=== PATIENT | male | born 1955 | race Caucasian/White ===

== ENCOUNTER 2019-02-23 19:47 | Inpatient (IN) | payer OTHER ==
[2019-02-23] MEDS ORDERED: IPRATROPIUM/ALBUTEROL 0.5-2.5 MG/3 ML AMPUL NEB ONE (20:18)
[2019-02-23] MEDS ORDERED: METHYLPREDNISOLONE INJ 125 MG/2 ML SDV IV ONE (20:18)
--- NOTE | 2019-02-23 20:26 | ER Document Report ---
ED Respiratory Problem - General Chief Complaint: Shortness Of Breath Stated Complaint: TROUBLE BREATHING Time Seen by Provider: 02/23/19 20:14 Primary Care Provider: JUNG FOX PA [Primary Care Provider] - Follow up as needed Mode of Arrival: Ambulatory Information source: Patient Notes: Chief complaint: Shortness of breath History of complain: 64 years old male with a history of smoking and COPD presents today with 3-day history of persistent cough with on and off exacerbation of breathing. And wheezing diffusely. He has been taking his long-acting bronchodilators, and inhaled steroids. Without help. Denies any fever chills. Productive cough with white sputum. Left chest wall pain on coughing. Denies any left arm numbness tingling sensation nausea she had vomiting palpitation no diaphoresis. He smokes 1 pack of cigarettes a day. Onset: As above Duration: 3 days Severity: Moderate to severe Quality: Wheezing Context: COPD Exacerbating factor and relieving factors: Coughing and minimal exertion REVIEW OF SYSTEMS: CONSTITUTIONAL : Denies fever, chills, or sweats. Denies recent illness. EENT: Denies eye, ear, throat, or mouth pain or symptoms. Denies nasal or sinus congestion or discharge. Denies throat, tongue, or mouth swelling or difficulty swallowing. CARDIOVASCULAR: Denies chest pain. Denies palpitations or racing or irregular heart beat. Denies ankle edema. RESPIRATORY: Denies cough, cold, or chest congestion. Denies shortness of breath, difficulty breathing, or wheezing. GASTROINTESTINAL: Denies abdominal pain or distention. Denies nausea, vomiting, or diarrhea. Denies blood in vomitus, stools, or per rectum. Denies black, tarry stools. Denies constipation. GENITOURINARY: Denies difficulty urinating, painful urination, burning, frequency, blood in urine, or discharge. MUSCULOSKELETAL: Denies back or neck pain or stiffness. Denies joint pain or swelling. SKIN: Denies rash, lesions or sores. HEMATOLOGIC : Denies easy bruising or bleeding. LYMPHATIC: Denies swollen, enlarged glands. NEUROLOGICAL: Denies confusion or altered mental status. Denies passing out or loss of consciousness. Denies dizziness or lightheadedness. Denies headache. Denies weakness or paralysis or loss of use of either side. Denies problems with gait or speech. Denies sensory loss, numbness, or tingling. Denies seizures. PSYCHIATRIC: Denies anxiety or stress. Denies depression, suicidal ideation, o r homicidal ideation. ALL OTHER SYSTEMS REVIEWED AND NEGATIVE. Dictation was performed using [email or web address] voice recognition software PHYSICAL EXAMINATION: GENERAL: Well-appearing, well-nourished and in moderate to severe acute distress. HEAD: Atraumatic, normocephalic. EYES: Pupils equal round and reactive to light, extraocular movements intact, sclera anicteric, conjunctiva are normal. ENT: Nares patent, oropharynx clear without exudates. Moist mucous membranes. NECK: Normal range of motion, supple without lymphadenopathy LUNGS: Bilateral diffuse wheezing expiratory throughout the lung field. HEART: Regular rate and rhythm without murmurs ABDOMEN: Soft, nontender, nondistended abdomen. No guarding, no rebound. No masses appreciated. Musculoskeletal: Normal range of motion, no pitting or edema. No cyanosis. NEUROLOGICAL: Cranial nerves grossly intact. Normal speech, normal gait. Normal sensory, motor exams PSYCH: Normal mood, normal affect. SKIN: Warm, Dry, normal turgor, no rashes or lesions noted. TRAVEL OUTSIDE OF THE [place] IN LAST 30 DAYS: No - HPI Notes: Dictated - Related Data Allergies/Adverse Reactions: No Known Allergies Allergy (Verified 03/21/16 15:00) Past Medical History - Social History Smoking Status: Current Every Day Smoker Cigarette use (# per day): Yes - 20 Chew tobacco use (# tins/day): No Smoking Education Provided: Yes Lives with: Family Family History: Reviewed & Not Pertinent - Past Medical History Cardiac Medical History: Denies: Hx Coronary Artery Disease, Hx Heart Attack, Hx Hypertension Pulmonary Medical History: Reports: Hx Asthma, Hx Bronchitis, Hx COPD Denies: Hx Pneumonia, Hx Tuberculosis Neurological Medical History: Denies: Hx Cerebrovascular Accident, Hx Seizures GI Medical History: Reports: Hx Gastroesophageal Reflux Disease Musculoskeletal Medical History: Denies Hx Arthritis Past Surgical History: Reports: Hx Herniorrhaphy, Hx Orthopedic Surgery - left elbow. Denies: Hx Pacemaker - Immunizations Hx Diphtheria, Pertussis, Tetanus Vaccination: Yes Hx Pneumococcal Vaccination: 06/12/10 Review of Systems - Review of Systems Notes: Dictated Physical Exam - Vital signs Vitals: Temp Pulse Resp BP Pulse Ox 98.9 F 116 H 19 129/85 H 89 L 02/23/19 19:51 02/23/19 19:51 02/23/19 19:51 02/23/19 19:51 02/23/19 19:51 - Notes Notes: Dictated Course - Re-evaluation Re-evalutation: 02/23/19 23:13 Case was discussed with the hospital service and currently being admitted - Vital Signs Vital signs: Temp Pulse Resp BP Pulse Ox 98.9 F 116 H 18 129/85 H 100 02/23/19 19:51 02/23/19 19:51 02/23/19 21:00 02/23/19 19:51 02/23/19 22:18 - Laboratory Result Diagrams: 02/23/19 20:50 02/23/19 20:50 Laboratory results interpreted by me: 02/23/19 02/23/19 02/23/19 20:44 20:50 20:50 WBC 15.7 H RDW 15.6 H Lymph % (Auto) 9.2 L Absolute Neuts (auto) 12.5 H Seg Neutrophils % 79.7 H D-Dimer 0.61 H Carbonic Acid ABG pH ABG pCO2 ABG pO2 ABG Total CO2 ABG O2 Saturation Creatinine Est GFR ( Amer) Est GFR (MDRD) Non-Af Calcium Creatine Kinase CK-MB (CK-2) Urine Blood SMALL H 02/23/19 02/23/19 02/23/19 20:50 20:50 20:53 WBC RDW Lymph % (Auto) Absolute Neuts (auto) Seg Neutrophils % D-Dimer Carbonic Acid 0.92 L ABG pH 7.46 H ABG pCO2 30.6 L ABG pO2 54.0 L ABG Total CO2 22.3 L ABG O2 Saturation 90.2 L Creatinine 1.67 H Est GFR ( Amer) 51 L Est GFR (MDRD) Non-Af 42 L Calcium 10.3 H Creatine Kinase 338 H CK-MB (CK-2) 4.78 H Urine Blood - Diagnostic Test Radiology reviewed: Reports reviewed - Chest x-ray reported by radiologist as u nremarkable/EQ vocal Discharge - Discharge Clinical Impression: COPD with exacerbation, Chest wall pain Condition: Fair Disposition: HOME, SELF-CARE Admitting Provider: Jagjit (Hospitalist) Unit Admitted: Telemetry Referrals: JUNG FOX PA [Primary Care Provider] - Follow up as needed
--- NOTE | 2019-02-23 20:59 | RADIOLOGY REPORT (SQ) ---
EXAM DESCRIPTION: XR CHEST 2 VIEWS COMPLETED DATE/TME: 02/23/2019 20:19 CLINICAL HISTORY: 64 years, Male, Cough and shortness of breath COMPARISON: 03/20/2014 chest NUMBER OF VIEWS: 2 TECHNIQUE: Frontal and lateral views of the chest LIMITATIONS: None. FINDINGS: Heart size is normal. Underlying hyperinflation/COPD. Equivocal retrocardiac infiltrate suggested on the lateral view. No pneumothorax. Osteopenia.. IMPRESSION: COPD. Equivocal retrocardiac infiltrate. copyright 2010 [employer]- All Rights Reserved
[2019-02-23 21:04] LABS: ABSOLUTE BASOPHILS # (AUTO) 0.1 10^3/uL (0.0-0.2); ABSOLUTE EOSINOPHILS # (AUTO) 0.4 10^3/uL (0.0-0.6); ABSOLUTE LYMPHOCYTES (AUTO) 1.4 10^3/uL (0.5-4.7); ABSOLUTE MONOCYTES (AUTO) 1.3 10^3/uL (0.1-1.4); ABSOLUTE NEUT (AUTO) 12.5 10^3/uL (1.7-8.2); BASOPHILS % (AUTO) 0.4 % (0-2); EOSINOPHILS % (AUTO) 2.5 % (0-6); HEMATOCRIT 43.6 % (37.9-51.0); HEMOGLOBIN 14.6 g/dL (13.5-17.0); LYMPHOCYTES % (AUTO) 9.2 % (13-45); MEAN CORPUSCULAR HEMOGLOBIN 27.8 pg (27.0-33.4); MEAN CORPUSCULAR HGB CONC 33.4 g/dL (32.0-36.0); MEAN CORPUSCULAR VOLUME 83 fl (80-97); MONOCYTES % (AUTO) 8.2 % (3-13); PLATELET COUNT 267 10^3/uL (150-450); RED BLOOD COUNT 5.23 10^6/uL (4.35-5.55); RED CELL DISTRIBUTION WIDTH 15.6 % (11.5-14.0); SEGMENTED NEUTROPHILS % (AUTO) 79.7 % (42-78); TOTAL CELLS COUNTED % (AUTO) 100 %; WHITE BLOOD COUNT 15.7 10^3/uL (4.0-10.5)
[2019-02-23] MEDS: MAGNESIUM SULFATE/D5W 1 GM/100 ML RTUPB IV SCH ×2 (21:06→22:04)
[2019-02-23 21:20] LABS: ARTERIAL BLOOD BASE EXCESS -1.3 mmol/L; ARTERIAL BLOOD FIO2 ROOM AIR; ARTERIAL BLOOD H2CO3 0.92 mmol/L (1.05-1.35); ARTERIAL BLOOD HCO3 21.4 mmol/L (20-24); ARTERIAL BLOOD O2 SATURATION 90.2 % (94-98); ARTERIAL BLOOD PCO2 30.6 mmHg (35-45); ARTERIAL BLOOD PH 7.46 (7.35-7.45); ARTERIAL BLOOD TOTAL CO2 22.3 mmol/L (23-27)
[2019-02-23 21:27] LABS: APPEARANCE,URINE CLEAR; BILIRUBIN,URINE NEGATIVE (NEGATIVE); GLUCOSE, URINE NEGATIVE (NEGATIVE); KETONES,URINE NEGATIVE (NEGATIVE); LEUKOCYTE ESTERASE,URINE NEGATIVE (NEGATIVE); NITRITE,URINE NEGATIVE (NEGATIVE); PROTEIN,URINE NEGATIVE (NEGATIVE); URINE SPECIFIC GRAVITY 1.015; UROBILINOGEN,URINE NEGATIVE mg/dL (<2.0)
[2019-02-23 21:28] LABS: COLOR,URINE DARK YELLOW
[2019-02-23 21:29] LABS: ALBUMIN 4.4 g/dL (3.5-5.0); ALKALINE PHOSPHATASE 86 U/L (38-126); ANION GAP 12 (5-19); ASPARTATE AMINO TRANSFERASE 28 U/L (17-59); BILIRUBIN,DIRECT 0.2 mg/dL (0.0-0.4); BILIRUBIN,TOTAL 0.8 mg/dL (0.2-1.3); BLOOD UREA NITROGEN 16 mg/dL (7-20); CALCIUM 10.3 mg/dL (8.4-10.2); CARBON DIOXIDE 25 mmol/L (22-30); CHLORIDE 103 mmol/L (98-107); CREATINE KINASE 338 U/L (55-170); GLUCOSE 98 mg/dL (75-110); POTASSIUM 4.2 mmol/L (3.6-5.0)
[2019-02-23 21:39] LABS: CREATINE KINASE MB 4.78 ng/mL (<4.55); NT PRO BNP 178 pg/mL (5-900)
[2019-02-23 21:46] LABS: TROPONIN I < 0.012 ng/mL
[2019-02-23] MEDS ORDERED: AZITHROMYCIN 500 MG in DEXTROSE 5%-WATER 250 ML IV ONE (23:00)
[2019-02-23] MEDS ORDERED: CEFTRIAXONE 1 GM/D5W RTU 1 GM/50 ML RTUPB IV ONE (23:00)
[2019-02-23] MEDS ORDERED: ACETAMINOPHEN 325 MG TABLET PO PRN (23:19)
[2019-02-23] MEDS ORDERED: IPRATROPIUM/ALBUTEROL 0.5-2.5 MG/3 ML AMPUL NEB PRN (23:19)
[2019-02-23] MEDS ORDERED: GUAIFENESIN SYRP 200 MG/10 ML UDC PO PRN (23:19)
[2019-02-23] MEDS ORDERED: HYDRALAZINE HCL INJ/PF 20 MG/1 ML SDV IV PRN (23:19)
[2019-02-23] MEDS ORDERED: FLUTICASONE NASAL SPRAY 50 MCG/SPRY 120 SPRAY/16 GM NASL ONE (23:45)
[2019-02-23] MEDS ORDERED: AZITHROMYCIN INJ 500 MG VIAL IV PRN (23:58)
[2019-02-24] MEDS ORDERED: CHLORPHENIRAMINE MALEATE 4 MG TABLET ONE (02:14)
[2019-02-24] MEDS ORDERED: FLUTICASONE NASAL SPRAY 50 MCG/SPRY 120 SPRAY/16 GM ONE (02:15)
[2019-02-24] MEDS: CHLORPHENIRAMINE MALEATE 4 MG TABLET PO SCH ×4 (03:20→18:39)
[2019-02-24] MEDS: IPRATROPIUM/ALBUTEROL 0.5-2.5 MG/3 ML AMPUL NEB SCH ×4 (03:30→19:58)
--- NOTE | 2019-02-24 06:05 | PDOC H&P ---
History of Present Illness Admission Date/PCP: 02/24/19 00:28 ALEXANDER VARGAS Patient complains of: Shortness of breath History of Present Illness: KAILYN PENA JR is a 64 year old male with a past medical history of COPD and tobacco dependence presents with 7 days of fever chills productive cough with green sputum. In the emergency room he is found to pneumonia, bilateral rhonchi, hypoxia by ABG and leukocytosis. He receives empiric antibiotics and referred to the hospitalist for admission. Patient denies recent antibiotic use or known infectious contacts. He otherwise admits to sinus congestion with nasal drip without sore throat or uncontrolled GERD. Past Medical History Cardiac Medical History: Denies: Coronary Artery Disease, Myocardial Infarction, Hypertension Pulmonary Medical History: Reports: Asthma, Bronchitis, Chronic Obstructive Pulmonary Disease (COPD) Denies: Pneumonia, Tuberculosis Neurological Medical History: Denies: Seizures GI Medical History: Reports: Gastroesophageal Reflux Disease Musculoskeltal Medical History: Denies: Arthritis Psychiatric Medical History: Denies: Depression Hematology: Denies: Anemia Past Surgical History Past Surgical History: Reports: Herniorrhaphy, Orthopedic Surgery - left elbow Denies: Pacemaker Social History Information Source: Patient Lives with: Family Smoking Status: Current Every Day Smoker Cigarettes Packs Per Day: 1 Number of Years Smokin Frequency of Alcohol Use: None Hx Recreational Drug Use: No Drugs: None Hx Prescription Drug Abuse: No - Advance Directive Resuscitation Status: Full Code Family History Family History: Reviewed & Not Pertinent Parental Family History Reviewed: Yes Children Family History Reviewed: Yes Sibling(s) Family History Reviewed.: Yes Medication/Allergy Home Medications: Sertraline HCl [Zoloft 50 mg Tablet] 50 mg PO DAILY 08/04/15 Budesonide/Formoterol Fumarate [Symbicort Hfa 160-4.5 Mcg Inhaler 6 gm] 2 puff IH Q12 08/05/15 Allergies/Adverse Reactions: No Known Allergies Allergy (Verified 03/21/16 15:00) Review of Systems Constitutional: ABSENT: chills, fever(s), headache(s), weight gain, weight loss Eyes: ABSENT: visual disturbances Ears: ABSENT: hearing changes Cardiovascular: ABSENT: chest pain, dyspnea on exertion, edema, orthropnea, palpitations Respiratory: ABSENT: cough, hemoptysis Gastrointestinal: ABSENT: abdominal pain, constipation, diarrhea, hematemesis, hematochezia, nausea, vomiting Genitourinary: ABSENT: dysuria, hematuria Musculoskeletal: ABSENT: joint swelling Integumentary: ABSENT: rash, wounds Neurological: ABSENT: abnormal gait, abnormal speech, confusion, dizziness, focal weakness, syncope Psychiatric: ABSENT: anxiety, depression, homidical ideation, suicidal ideation Endocrine: ABSENT: cold intolerance, heat intolerance, polydipsia, polyuria Hematologic/Lymphatic: ABSENT: easy bleeding, easy bruising Physical Exam Vital Signs: Temp Pulse Resp BP Pulse Ox 98.5 F 78 16 128/71 H 98 02/24/19 02:00 02/24/19 03:30 02/24/19 03:30 02/24/19 02:00 02/24/19 03:30 Intake & Output 02/22/19 02/23/19 02/24/19 11:59 11:59 11:59 Intake Total 250 Balance 250 Weight 84 kg General appearance: PRESENT: cooperative, severe distress, thin, well-developed, well-nourished Head exam: PRESENT: atraumatic, normocephalic Eye exam: PRESENT: conjunctiva pink, EOMI, PERRLA. ABSENT: scleral icterus Ear exam: PRESENT: normal external ear exam Mouth exam: PRESENT: moist, tongue midline Neck exam: ABSENT: carotid bruit, JVD, lymphadenopathy, thyromegaly Respiratory exam: PRESENT: accessory muscle use, prolonged expiratory phas, retraction, rhonchi, symmetrical, tachypnea, wheezes Cardiovascular exam: PRESENT: +S1, +S2, tachycardia. ABSENT: diastolic murmur, rubs, systolic murmur Pulses: PRESENT: normal dorsalis pedis pul Vascular exam: PRESENT: normal capillary refill GI/Abdominal exam: PRESENT: normal bowel sounds, soft. ABSENT: distended, guarding, mass, organolmegaly, rebound, tenderness Rectal exam: PRESENT: deferred Extremities exam: PRESENT: full ROM. ABSENT: calf tenderness, clubbing, pedal edema Neurological exam: PRESENT: alert, awake, oriented to person, oriented to place, oriented to time, oriented to situation, CN II-XII grossly intact. ABSENT: motor sensory deficit Psychiatric exam: PRESENT: appropriate affect, normal mood. ABSENT: homicidal ideation, suicidal ideation Skin exam: PRESENT: dry, intact, warm. ABSENT: cyanosis, rash Results Laboratory Results: 02/23/19 20:50 02/23/19 20:50 02/23/19 02/23/19 02/23/19 20:44 20:50 20:50 WBC 15.7 H RBC 5.23 Hgb 14.6 Hct 43.6 MCV 83 MCH 27.8 MCHC 33.4 RDW 15.6 H Plt Count 267 Seg Neutrophils % 79.7 H Carbonic Acid HCO3/H2CO3 Ratio ABG pH ABG pCO2 ABG pO2 ABG HCO3 ABG O2 Saturation ABG Base Excess FiO2 Sodium 139.9 Potassium 4.2 Chloride 103 Carbon Dioxide 25 Anion Gap 12 BUN 16 Creatinine 1.67 H Est GFR ( Amer) 51 L Glucose 98 Calcium 10.3 H Total Bilirubin 0.8 AST 28 Alkaline Phosphatase 86 Total Protein 7.0 Albumin 4.4 Urine Color DARK YELLOW Urine Appearance CLEAR Urine pH 5.0 Ur Specific [place] 1.015 Urine Protein NEGATIVE Urine Glucose (UA) NEGATIVE Urine Ketones NEGATIVE Urine Blood SMALL H Urine Nitrite NEGATIVE Ur Leukocyte Esterase NEGATIVE Urine WBC (Auto) 1 Urine RBC (Auto) 2 02/23/19 20:53 WBC RBC Hgb Hct MCV MCH MCHC RDW Plt Count Seg Neutrophils % Carbonic Acid 0.92 L HCO3/H2CO3 Ratio 23:1 ABG pH 7.46 H ABG pCO2 30.6 L ABG pO2 54.0 L ABG HCO3 21.4 ABG O2 Saturation 90.2 L ABG Base Excess -1.3 FiO2 ROOM AIR Sodium Potassium Chloride Carbon Dioxide Anion Gap BUN Creatinine Est GFR ( Amer) Glucose Calcium Total Bilirubin AST Alkaline Phosphatase Total Protein Albumin Urine Color Urine Appearance Urine pH Ur Specific [place] Urine Protein Urine Glucose (UA) Urine Ketones Urine Blood Urine Nitrite Ur Leukocyte Esterase Urine WBC (Auto) Urine RBC (Auto) 02/23/19 02/23/19 20:50 20:50 Creatine Kinase 338 H CK-MB (CK-2) 4.78 H Troponin I < 0.012 NT-Pro-B Natriuret Pep 178 Impressions: Chest X-Ray 02/23/19 20:19 IMPRESSION: COPD. Equivocal retrocardiac infiltrate. copyright 2010 [employer]- All Rights Reserved Assessment and Plan - Diagnosis (1) Pneumonia Is this a current diagnosis for this admission?: Yes Plan: Pneumonia care set, follow-up blood culture and CBC (2) COPD with exacerbation Is this a current diagnosis for this admission?: Yes Plan: Steroids, supplemental oxygen, flutter valve, incentive spirometry albuterol and Atrovent (3) Chest wall pain Is this a current diagnosis for this admission?: Yes Plan: Secondary to #1 and cough. NSAIDs as needed - Time Time Spent with patient: 25-34 minutes - Inpatient Certification Medical Necessity: Need Close Monitoring Due to Risk of Patient Decompensation
[2019-02-24] MEDS: METHYLPREDNISOLONE INJ 125 MG/2 ML SDV IV SCH ×3 (06:09→23:45)
[2019-02-24] MEDS: HEPARIN SOD (PORCINE) 5,000 UNIT/ML 1 ML VIAL SUBCUT SCH ×3 (06:09→23:45)
[2019-02-24 06:38] LABS: ANION GAP 9 (5-19); BLOOD UREA NITROGEN 16 mg/dL (7-20); CALCIUM 9.6 mg/dL (8.4-10.2); CARBON DIOXIDE 22 mmol/L (22-30); CHLORIDE 108 mmol/L (98-107); GLUCOSE 191 mg/dL (75-110); POTASSIUM 4.2 mmol/L (3.6-5.0)
[2019-02-24 06:39] LABS: HEMATOCRIT 50.7 % (37.9-51.0); HEMOGLOBIN 16.6 g/dL (13.5-17.0); MEAN CORPUSCULAR HEMOGLOBIN 27.3 pg (27.0-33.4); MEAN CORPUSCULAR HGB CONC 32.7 g/dL (32.0-36.0); MEAN CORPUSCULAR VOLUME 83 fl (80-97); PLATELET COUNT 197 10^3/uL (150-450); RED BLOOD COUNT 6.08 10^6/uL (4.35-5.55); RED CELL DISTRIBUTION WIDTH 15.2 % (11.5-14.0)
[2019-02-24 07:19] LABS: ABSOLUTE MONOCYTES # (MANUAL) 0.1 10^3/uL (0.1-1.4); ANISOCYTOSIS SLIGHT; BAND NEUTROPHILS % (MANUAL) 6 % (3-5); BASOPHILS % (MANUAL) 0 % (0-2); EOSINOPHILS % (MANUAL) 0 % (0-6); LYMPHOCYTES % (MANUAL) 7 % (13-45); MONOCYTES % (MANUAL) 1 % (3-13); SEGMENTED NEUTROPHILS % (MAN) 86 % (42-78); TOTAL CELLS COUNTED 100
[2019-02-24 07:20] LABS: PLATELET COMMENT ADEQUATE
[2019-02-24] MEDS: NICOTINE 14 MG/24 HR PATCH.TD24 TD SCH (10:13)
[2019-02-24] MEDS: FLUTICASONE NASAL SPRAY 50 MCG/SPRY 120 SPRAY/16 GM NASL SCH ×2 (10:19→23:47)
--- NOTE | 2019-02-24 16:29 | PDOC PROGRESS REPORT ---
Subjective Progress Note for:: 02/24/19 Subjective:: KAILYN PENA JR is a 64 year old male with a past medical history of COPD and tobacco dependence presents with 7 days of fever chills productive cough with green sputum. In the emergency room he is found to pneumonia, bilateral rhonchi, hypoxia by ABG and leukocytosis. He receives empiric antibiotics and referred to the hospitalist for admission. Patient denies recent antibiotic use or known infectious contacts. He otherwise admits to sinus congestion with n reddy drip without sore throat or uncontrolled GERD. 02/24/2019. Patient comfortably sitting in bed, enjoying his lunch, stating he is feeling much better, accompanied by his , denies any fever, chills, nausea, vomiting, diarrhea, constipation or any urinary symptoms. Still complaining of productive cough. Reason For Visit: COPD WITH EXACERBATION,CHEST WALL PAIN Physical Exam Vital Signs: Temp Pulse Resp BP Pulse Ox 98.3 F 92 18 118/75 94 02/24/19 10:54 02/24/19 14:04 02/24/19 14:04 02/24/19 10:54 02/24/19 14:04 Intake & Output 02/23/19 02/24/19 02/25/19 06:59 06:59 06:59 Intake Total 400 621 Balance 400 621 Weight 84 kg General appearance: PRESENT: no acute distress, obese Respiratory exam: PRESENT: crackles, prolonged expiratory phas, symmetrical, wheezes. ABSENT: rales, rhonchi Cardiovascular exam: PRESENT: RRR. ABSENT: diastolic murmur, rubs, systolic murmur GI/Abdominal exam: PRESENT: normal bowel sounds, soft. ABSENT: distended, gua rding, mass, organolmegaly, rebound, tenderness Neurological exam: PRESENT: alert, awake, oriented to person, oriented to place, oriented to time, oriented to situation, CN II-XII grossly intact. ABSENT: motor sensory deficit Results Laboratory Results: 02/24/19 05:35 02/24/19 05:35 02/23/19 02/23/19 02/23/19 20:44 20:50 20:50 WBC 15.7 H RBC 5.23 Hgb 14.6 Hct 43.6 MCV 83 MCH 27.8 MCHC 33.4 RDW 15.6 H Plt Count 267 Seg Neutrophils % 79.7 H Carbonic Acid HCO3/H2CO3 Ratio ABG pH ABG pCO2 ABG pO2 ABG HCO3 ABG O2 Saturation ABG Base Excess FiO2 Sodium 139.9 Potassium 4.2 Chloride 103 Carbon Dioxide 25 Anion Gap 12 BUN 16 Creatinine 1.67 H Est GFR ( Amer) 51 L Glucose 98 Calcium 10.3 H Total Bilirubin 0.8 AST 28 Alkaline Phosphatase 86 Total Protein 7.0 Albumin 4.4 Urine Color DARK YELLOW Urine Appearance CLEAR Urine pH 5.0 Ur Specific [place] 1.015 Urine Protein NEGATIVE Urine Glucose (UA) NEGATIVE Urine Ketones NEGATIVE Urine Blood SMALL H Urine Nitrite NEGATIVE Ur Leukocyte Esterase NEGATIVE Urine WBC (Auto) 1 Urine RBC (Auto) 2 02/23/19 02/24/19 02/24/19 20:53 05:35 05:35 WBC 14.0 H RBC 6.08 H Hgb 16.6 Hct 50.7 MCV 83 MCH 27.3 MCHC 32.7 RDW 15.2 H Plt Count 197 Seg Neutrophils % Not Reportable Carbonic Acid 0.92 L HCO3/H2CO3 Ratio 23:1 ABG pH 7.46 H ABG pCO2 30.6 L ABG pO2 54.0 L ABG HCO3 21.4 ABG O2 Saturation 90.2 L ABG Base Excess -1.3 FiO2 ROOM AIR Sodium 139.2 Potassium 4.2 Chloride 108 H Carbon Dioxide 22 Anion Gap 9 BUN 16 Creatinine 1.30 H Est GFR ( Amer) > 60 Glucose 191 H Calcium 9.6 Total Bilirubin AST Alkaline Phosphatase Total Protein Albumin Urine Color Urine Appearance Urine pH Ur Specific [place] Urine Protein Urine Glucose (UA) Urine Ketones Urine Blood Urine Nitrite Ur Leukocyte Esterase Urine WBC (Auto) Urine RBC (Auto) 02/23/19 02/23/19 20:50 20:50 Creatine Kinase 338 H CK-MB (CK-2) 4.78 H Troponin I < 0.012 NT-Pro-B Natriuret Pep 178 Impressions: Chest X-Ray 02/23/19 20:19 IMPRESSION: COPD. Equivocal retrocardiac infiltrate. copyright 2011 [employer]- All Rights Reserved Assessment and Plan - Diagnosis (1) Acute and chronic respiratory failure with hypoxia Is this a current diagnosis for this admission?: Yes Plan: Complicated by underlying COPD/asthma and continued tobacco abuse. SPO2 WNL on 3 L nasal cannula. Day 2 IV antibiotics. Day 2 IV ceftriaxone. Day 2 IV and azithromycin. Day 2 IV steroids. Continue IV steroids, duo nebs, flutter valve, incentive spirometry, IV empiric antibiotics, long-acting beta agonist, long-acting muscarinic antagonist, inhaled corticosteroids. Follow-up sputum and blood culture. (2) COPD with exacerbation Is this a current diagnosis for this admission?: Yes Plan: Plan per #1. Advised on tobacco cessation. Not on home O2. (3) Pneumonia Qualifiers: Aspiration pneumonia type: unspecified Is this a current diagnosis for this admission?: Yes Plan: Community-acquired. Likely due to gram-positive. Plan as per #1. (4) Tobacco abuse Is this a current diagnosis for this admission?: Yes Plan: Counseled on quitting. NicoDerm patch provided. (5) Obesity (BMI 30-39.9) Is this a current diagnosis for this admission?: Yes Plan: Diet and lifestyle modification advised.
[2019-02-24] MEDS: CEFTRIAXONE 1 GM/D5W RTU 1 GM/50 ML RTUPB IV SCH (23:45)
[2019-02-24] MEDS: AZITHROMYCIN 500 MG in DEXTROSE 5%-WATER 250 ML IV SCH (23:46)
[2019-02-25] MEDS: IPRATROPIUM/ALBUTEROL 0.5-2.5 MG/3 ML AMPUL NEB SCH ×4 (02:13→20:48)
[2019-02-25 06:16] LABS: HEMATOCRIT 39.5 % (37.9-51.0); MEAN CORPUSCULAR HGB CONC 33.3 g/dL (32.0-36.0); MEAN CORPUSCULAR VOLUME 84 fl (80-97); PLATELET COUNT 300 10^3/uL (150-450); RED CELL DISTRIBUTION WIDTH 14.8 % (11.5-14.0); WHITE BLOOD COUNT 19.2 10^3/uL (4.0-10.5)
[2019-02-25 06:32] LABS: ALBUMIN 3.5 g/dL (3.5-5.0); ALKALINE PHOSPHATASE 91 U/L (38-126); ANION GAP 8 (5-19); ASPARTATE AMINO TRANSFERASE 22 U/L (17-59); BILIRUBIN,DIRECT 0.2 mg/dL (0.0-0.4); BILIRUBIN,TOTAL 0.3 mg/dL (0.2-1.3); BLOOD UREA NITROGEN 29 mg/dL (7-20); CALCIUM 9.8 mg/dL (8.4-10.2); CARBON DIOXIDE 21 mmol/L (22-30); CHLORIDE 110 mmol/L (98-107); GLUCOSE 170 mg/dL (75-110); POTASSIUM 4.1 mmol/L (3.6-5.0)
[2019-02-25 06:34] LABS: HEMOGLOBIN 13.2 g/dL (13.5-17.0)
[2019-02-25] MEDS: METHYLPREDNISOLONE INJ 125 MG/2 ML SDV IV SCH ×3 (06:39→22:31)
[2019-02-25] MEDS: HEPARIN SOD (PORCINE) 5,000 UNIT/ML 1 ML VIAL SUBCUT SCH ×3 (06:39→22:31)
[2019-02-25 06:47] LABS: ABSOLUTE LYMPHOCYTES# (MANUAL) 0.8 10^3/uL (0.5-4.7); ANISOCYTOSIS SLIGHT; BAND NEUTROPHILS % (MANUAL) 1 % (3-5); BASOPHILS % (MANUAL) 0 % (0-2); EOSINOPHILS % (MANUAL) 0 % (0-6); LYMPHOCYTES % (MANUAL) 4 % (13-45); MONOCYTES % (MANUAL) 0 % (3-13); SEGMENTED NEUTROPHILS % (MAN) 95 % (42-78); TOTAL CELLS COUNTED 100
[2019-02-25 06:48] LABS: PLATELET COMMENT ADEQUATE
[2019-02-25 07:36] LABS: ARTERIAL BLOOD BASE EXCESS -3.9 mmol/L; ARTERIAL BLOOD FIO2 28%; ARTERIAL BLOOD H2CO3 1.02 mmol/L (1.05-1.35); ARTERIAL BLOOD HCO3 20.2 mmol/L (20-24); ARTERIAL BLOOD O2 SATURATION 94.6 % (94-98); ARTERIAL BLOOD PCO2 33.9 mmHg (35-45); ARTERIAL BLOOD PH 7.39 (7.35-7.45); ARTERIAL BLOOD PO2 72.2 mmHg (80-100); ARTERIAL BLOOD TOTAL CO2 21.2 mmol/L (23-27)
[2019-02-25 07:37] LABS: HEMATOCRIT 39.6 % (37.9-51.0); HEMOGLOBIN 13.2 g/dL (13.5-17.0); MEAN CORPUSCULAR HEMOGLOBIN 27.9 pg (27.0-33.4); MEAN CORPUSCULAR HGB CONC 33.2 g/dL (32.0-36.0); MEAN CORPUSCULAR VOLUME 84 fl (80-97); PLATELET COUNT 317 10^3/uL (150-450); RED BLOOD COUNT 4.72 10^6/uL (4.35-5.55); RED CELL DISTRIBUTION WIDTH 15.3 % (11.5-14.0); WHITE BLOOD COUNT 20.1 10^3/uL (4.0-10.5)
[2019-02-25 08:12] LABS: ABSOLUTE LYMPHOCYTES# (MANUAL) 1.2 10^3/uL (0.5-4.7); ANISOCYTOSIS SLIGHT; BAND NEUTROPHILS % (MANUAL) 1 % (3-5); BASOPHILS % (MANUAL) 0 % (0-2); EOSINOPHILS % (MANUAL) 0 % (0-6); LYMPHOCYTES % (MANUAL) 6 % (13-45); MONOCYTES % (MANUAL) 5 % (3-13); PLATELET COMMENT ADEQUATE; SEGMENTED NEUTROPHILS % (MAN) 88 % (42-78); TOTAL CELLS COUNTED 100
[2019-02-25] MEDS ORDERED: FLUTICASONE/VILANTEROL 200-25 MCG/DOSE IH SCH (10:00)
[2019-02-25] MEDS: FLUTICASONE/VILANTEROL 200-25 MCG/DOSE IH SCH (11:33)
[2019-02-25] MEDS: TIOTROPIUM BROMIDE DPI 5 CAP/KIT (18 MCG/CAP) IH SCH (11:35)
[2019-02-25] MEDS: NICOTINE 14 MG/24 HR PATCH.TD24 TD SCH (11:37)
[2019-02-25] MEDS: FLUTICASONE NASAL SPRAY 50 MCG/SPRY 120 SPRAY/16 GM NASL SCH ×2 (14:01→22:44)
--- NOTE | 2019-02-25 15:46 | PDOC PROGRESS REPORT ---
Subjective Progress Note for:: 02/25/19 Subjective:: KAILYN PENA JR is a 64 year old male with a past medical history of COPD and tobacco dependence presents with 7 days of fever chills productive cough with green sputum. In the emergency room he is found to pneumonia, bilateral rhonchi, hypoxia by ABG and leukocytosis. He receives empiric antibiotics and referred to the hospitalist for admission. Patient denies recent antibiotic use or known infectious contacts. He otherwise admits to sinus congestion with n reddy drip without sore throat or uncontrolled GERD. 02/24/2019. Patient comfortably sitting in bed, enjoying his lunch, stating he is feeling much better, accompanied by his , denies any fever, chills, nausea, vomiting, diarrhea, constipation or any urinary symptoms. Still complaining of productive cough. 02/25/2019. No acute events overnight. Patient comfortably sitting in bed, enjoying his breakfast, planing of nonproductive nonbloody cough, wheezing, denies any fever, chills, nausea, vomiting, diarrhea, constipation or any urinary symptoms. Patient still has mild hypoxia with elevated WBC and mild bandemia. Continue antibiotics, evaluate for need for outpatient oxygen and possible DC home tomorrow. Reason For Visit: COPD WITH EXACERBATION,CHEST WALL PAIN Physical Exam Vital Signs: Temp Pulse Resp BP Pulse Ox 97.3 F 92 16 121/69 95 02/25/19 08:29 02/25/19 13:50 02/25/19 13:50 02/25/19 08:29 02/25/19 13:50 Intake & Output 02/24/19 02/25/19 02/26/19 06:59 06:59 06:59 Intake Total 400 1687 Balance 400 1687 Weight 84 kg 83.1 kg General appearance: PRESENT: no acute distress, well-developed, well-nourished Head exam: PRESENT: atraumatic, normocephalic Eye exam: PRESENT: conjunctiva pink, EOMI, PERRLA. ABSENT: scleral icterus Ear exam: PRESENT: normal external ear exam Mouth exam: PRESENT: moist, tongue midline Neck exam: ABSENT: carotid bruit, JVD, lymphadenopathy, thyromegaly Respiratory exam: PRESENT: decreased breath sounds, prolonged expiratory phas, wheezes. ABSENT: rales, rhonchi Cardiovascular exam: PRESENT: RRR. ABSENT: diastolic murmur, rubs, systolic murmur Pulses: PRESENT: normal dorsalis pedis pul Vascular exam: PRESENT: normal capillary refill GI/Abdominal exam: PRESENT: normal bowel sounds, soft. ABSENT: distended, guarding, mass, organolmegaly, rebound, tenderness Rectal exam: PRESENT: deferred Extremities exam: PRESENT: full ROM. ABSENT: calf tenderness, clubbing, pedal edema Neurological exam: PRESENT: alert, awake, oriented to person, oriented to place, oriented to time, oriented to situation, CN II-XII grossly intact. ABSENT: motor sensory deficit Psychiatric exam: PRESENT: appropriate affect, normal mood. ABSENT: homicidal ideation, suicidal ideation Skin exam: PRESENT: dry, intact, warm. ABSENT: cyanosis, rash Results Laboratory Results: 02/25/19 07:24 02/25/19 05:38 02/25/19 02/25/19 02/25/19 05:38 05:38 06:17 WBC 19.2 H RBC 4.70 Hgb 13.2 L D Hct 39.5 MCV 84 MCH 28.0 MCHC 33.3 RDW 14.8 H Plt Count 300 Seg Neutrophils % Not Reportable Carbonic Acid 1.02 L HCO3/H2CO3 Ratio 19:1 ABG pH 7.39 ABG pCO2 33.9 L ABG pO2 72.2 L ABG HCO3 20.2 ABG O2 Saturation 94.6 ABG Base Excess -3.9 FiO2 28% Sodium 138.8 Potassium 4.1 Chloride 110 H Carbon Dioxide 21 L Anion Gap 8 BUN 29 H Creatinine 1.18 Est GFR ( Amer) > 60 Glucose 170 H Calcium 9.8 Total Bilirubin 0.3 AST 22 Alkaline Phosphatase 91 Total Protein 6.0 L Albumin 3.5 02/25/19 07:24 WBC 20.1 H RBC 4.72 Hgb 13.2 L Hct 39.6 MCV 84 MCH 27.9 MCHC 33.2 RDW 15.3 H Plt Count 317 Seg Neutrophils % Not Reportable Carbonic Acid HCO3/H2CO3 Ratio ABG pH ABG pCO2 ABG pO2 ABG HCO3 ABG O2 Saturation ABG Base Excess FiO2 Sodium Potassium Chloride Carbon Dioxide Anion Gap BUN Creatinine Est GFR ( Amer) Glucose Calcium Total Bilirubin AST Alkaline Phosphatase Total Protein Albumin 02/23/19 02/23/19 20:50 20:50 Creatine Kinase 338 H CK-MB (CK-2) 4.78 H Troponin I < 0.012 NT-Pro-B Natriuret Pep 178 Impressions: Chest X-Ray 02/23/19 20:19 IMPRESSION: COPD. Equivocal retrocardiac infiltrate. copyright 2010 [employer]- All Rights Reserved Assessment and Plan - Diagnosis (1) Acute and chronic respiratory failure with hypoxia Is this a current diagnosis for this admission?: Yes Plan: Complicated by underlying COPD/asthma and continued tobacco abuse. SPO2 9197 on 2-3 L nasal cannula. WBC trending up which could be secondary to IV steroids. Cultures negative so far. Day 3 IV antibiotics. Day 3 IV ceftriaxone. Day 3 IV and azithromycin. Day 3 IV steroids. Continue IV steroids, duo nebs, flutter valve, incentive spirometry, IV empiric antibiotics, long-acting beta agonist, long-acting muscarinic antagonist, inhaled corticosteroids. Follow-up sputum and blood culture. (2) COPD with exacerbation Is this a current diagnosis for this admission?: Yes Plan: Plan per #1. Advised on tobacco cessation. Not on home O2. (3) Pneumonia Qualifiers: Aspiration pneumonia type: unspecified Is this a current diagnosis for this admission?: Yes Plan: Community-acquired. Likely due to gram-positive. Plan as per #1. (4) Tobacco abuse Is this a current diagnosis for this admission?: Yes Plan: Counseled on quitting. NicoDerm patch provided. (5) Obesity (BMI 30-39.9) Is this a current diagnosis for this admission?: Yes Plan: Diet and lifestyle modification advised.
[2019-02-25] MEDS: AZITHROMYCIN 500 MG in DEXTROSE 5%-WATER 250 ML IV SCH (22:31)
[2019-02-25] MEDS: CEFTRIAXONE 1 GM/D5W RTU 1 GM/50 ML RTUPB IV SCH (22:31)
[2019-02-26] MEDS: IPRATROPIUM/ALBUTEROL 0.5-2.5 MG/3 ML AMPUL NEB SCH ×3 (02:21→14:10)
[2019-02-26] MEDS: HEPARIN SOD (PORCINE) 5,000 UNIT/ML 1 ML VIAL SUBCUT SCH ×2 (06:36→13:16)
[2019-02-26] MEDS: METHYLPREDNISOLONE INJ 125 MG/2 ML SDV IV SCH ×2 (06:36→13:16)
[2019-02-26] MEDS: FLUTICASONE/VILANTEROL 200-25 MCG/DOSE IH SCH (10:47)
[2019-02-26] MEDS: FLUTICASONE NASAL SPRAY 50 MCG/SPRY 120 SPRAY/16 GM NASL SCH (10:47)
[2019-02-26] MEDS: TIOTROPIUM BROMIDE DPI 5 CAP/KIT (18 MCG/CAP) IH SCH (10:48)
[2019-02-26] MEDS: NICOTINE 14 MG/24 HR PATCH.TD24 TD SCH (10:49)
[2019-02-26 11:49] VITALS: BP 133/79
--- NOTE | 2019-02-26 12:37 | PDOC PROGRESS REPORT ---
Subjective Progress Note for:: 02/26/19 Subjective:: Resting comfortably. Was ambulating in the hallway earlier without oxygen. He appeared comfortable. Reason For Visit: COPD WITH EXACERBATION,CHEST WALL PAIN Physical Exam Vital Signs: Temp Pulse Resp BP Pulse Ox 98.1 F 92 18 133/79 H 94 02/26/19 11:00 02/26/19 11:00 02/26/19 11:00 02/26/19 11:00 02/26/19 11:00 Intake & Output 02/25/19 02/26/19 02/27/19 06:59 06:59 06:59 Intake Total 1687 1430 Balance 1687 1430 Weight 83.1 kg 84.7 kg 84.7 kg General appearance: PRESENT: no acute distress, cooperative, well-developed Head exam: PRESENT: atraumatic, normocephalic Eye exam: PRESENT: conjunctiva pink, EOMI, scleral icterus Ear exam: PRESENT: normal external ear exam. ABSENT: bleeding, drainage Mouth exam: PRESENT: dry mucosa, neck supple, tongue midline Respiratory exam: PRESENT: clear to auscultation leif, symmetrical, unlabored. ABSENT: accessory muscle use, prolonged expiratory phas, rales, rhonchi, tachypnea, wheezes Cardiovascular exam: PRESENT: RRR, +S1, +S2, systolic murmur - 2/6 GI/Abdominal exam: PRESENT: normal bowel sounds, soft. ABSENT: distended, guarding, tenderness Rectal exam: PRESENT: deferred Extremities exam: ABSENT: calf tenderness, joint swelling, pedal edema Neurological exam: PRESENT: alert, awake, oriented to person, oriented to place, oriented to time, oriented to situation, CN II-XII grossly intact Psychiatric exam: PRESENT: appropriate affect, normal mood. ABSENT: agitated, anxious Focused psych exam: ABSENT: delusional, restlessness Skin exam: PRESENT: dry, normal color, warm. ABSENT: rash Results Laboratory Results: 02/25/19 07:24 02/25/19 05:38 02/23/19 02/23/19 20:50 20:50 Creatine Kinase 338 H CK-MB (CK-2) 4.78 H Troponin I < 0.012 NT-Pro-B Natriuret Pep 178 Impressions: Chest X-Ray 02/23/19 20:19 IMPRESSION: COPD. Equivocal retrocardiac infiltrate. copyright 2010 [employer]- All Rights Reserved
--- NOTE | 2019-02-26 14:02 | PDOC DISCHARGE SUMMARY ---
General - Admit/Disc Date/PCP Admission Date/Primary Care Provider: 02/24/19 00:28 ALEXANDER VARGAS Discharge Date: 02/26/19 - Discharge Diagnosis (1) Acute and chronic respiratory failure with hypoxia Is this a current diagnosis for this admission?: Yes Summary: The respiratory failure resolved. The patient had adequate pulse oximetry while ambulating and at rest. The respiratory failure was secondary to the combination of pneumonia and his chronic obstructive pulmonary disease. (2) Pneumonia Is this a current diagnosis for this admission?: Yes Summary: Patient had a retrocardiac consolidation. He has responded to antibiotics and treatment for his COPD. He will complete his antibiotic therapy at home. (3) COPD with exacerbation Is this a current diagnosis for this admission?: Yes Summary: In addition to his antibiotics he received steroids and aggressive pulmonary toilet. (4) Chest wall pain Is this a current diagnosis for this admission?: Yes Summary: Likely pleuritic and secondary to coughing. Resolved. (5) Tobacco abuse Is this a current diagnosis for this admission?: Yes Summary: Cessation encouraged. - Additional Information Resuscitation Status: Full Code Discharge Diet: As Tolerated Discharge Activity: Activity As Tolerated Prescriptions: Prednisone [Deltasone 20 mg Tablet] 20 mg PO DAILY 3 Days #3 tablet Azithromycin [Zithromax 250 mg Tablet] 250 mg PO DAILY #5 tablet Home Medications: Budesonide/Formoterol Fumarate [Symbicort HFA 160-4.5 mcg Inhaler 6 gm] 2 puff IH Q12 08/05/15 Albuterol Sulfate [Ventolin 0.083% Neb 2.5 mg/3 mL Ampul] 1 vial NEB RTQ4HP PRN 02/24/19 Tiotropium Floyd [Spiriva Handihaler 5 Cap/Kit (18 Mcg/Cap)] 1 cap IH DAILY 02/24/19 Azithromycin [Zithromax 250 mg Tablet] 250 mg PO DAILY #5 tablet 02/26/19 Fluticasone Propionate [Flonase Nasal [place] 50 Mcg/[place] 16 gm] 2 spray NASL Q12 spray.pump 02/26/19 Nicotine [Nicoderm 14 mg/24 Hr Transdermal Patch] 1 each TD DAILY patch.td24 02/26/19 Prednisone [Deltasone 20 mg Tablet] 20 mg PO DAILY 3 Days #3 tablet 02/26/19 History of Present Illness Patient complains of: Shortness of breath History of Present Illness: KAILYN PENA JR is a 64 year old male with history of chronic obstructive pulmonary disease and tobacco dependence. He presents with 7 days of fever, chi lls and a productive cough with green sputum. By chest x-ray and clinical exam it was felt that he had pneumonia. He required oxygen supplementation for hypoxic respiratory failure as well. He was started on antibiotic therapy and referred to the hospitalist for admission. Hospital Course Hospital Course: Unremarkable hospital course. With antibiotics, steroids and nebulizer treatments the hypoxic respiratory failure resolved. He will complete treatment for his pneumonia as an outpatient. He will return to his regimen of inhalers and as needed nebulizer treatments at home. Physical Exam Vital Signs: Temp Pulse Resp BP Pulse Ox 98.1 F 92 18 133/79 H 94 02/26/19 11:00 02/26/19 11:00 02/26/19 11:00 02/26/19 11:00 02/26/19 11:00 Intake & Output 02/25/19 02/26/19 02/27/19 06:59 06:59 06:59 Intake Total 1687 1430 Balance 1687 1430 Weight 83.1 kg 84.7 kg 84.7 kg General appearance: PRESENT: no acute distress, cooperative, well-developed Head exam: PRESENT: atraumatic, normocephalic Eye exam: PRESENT: conjunctiva pink, EOMI. ABSENT: scleral icterus Ear exam: PRESENT: normal external ear exam. ABSENT: bleeding, drainage Mouth exam: PRESENT: moist, tongue midline Respiratory exam: PRESENT: clear to auscultation leif, symmetrical, unlabored. ABSENT: chest wall tenderness, prolonged expiratory phas, rales, rhonchi, tachypnea, wheezes Cardiovascular exam: PRESENT: RRR, +S1, +S2. ABSENT: diastolic murmur, systolic murmur GI/Abdominal exam: PRESENT: normal bowel sounds, soft. ABSENT: distended, guarding, tenderness Rectal exam: PRESENT: deferred Gentrourinary exam: ABSENT: indwelling catheter Extremities exam: ABSENT: joint swelling, pedal edema, tenderness Musculoskeletal exam: PRESENT: ambulatory, full ROM, normal inspection Neurological exam: PRESENT: alert, awake, oriented to person, oriented to place, oriented to time, oriented to situation, CN II-XII grossly intact. ABSENT: motor sensory deficit Psychiatric exam: PRESENT: appropriate affect, normal mood. ABSENT: agitated, anxious Focused psych exam: ABSENT: delusional, restlessness Skin exam: PRESENT: dry, normal color, warm. ABSENT: rash Results Laboratory Results: 02/25/19 07:24 02/25/19 05:38 02/23/19 02/23/19 20:50 20:50 Creatine Kinase 338 H CK-MB (CK-2) 4.78 H Troponin I < 0.012 NT-Pro-B Natriuret Pep 178 Impressions: Chest X-Ray 02/23/19 20:19 IMPRESSION: COPD. Equivocal retrocardiac infiltrate. copyright 2010 [employer]- All Rights Reserved Qualifiers - * PATIENT BEING DISCHARGED WITH ANY OF THE FOLLOWING DIAGNOSIS: No Acute Heart Failure - Is this a Heart Failure Patient?: No Plan Discharge Plan: As above. Follow-up with primary care provider within the next week. Time Spent: Greater than 30 Minutes
== END 2019-02-26 15:00 | disposition home or self-care (01) | DRG 193 ==
LOC: ER 19:47 → EH 02-24 00:28 → 5 02-24 01:55
PROVIDERS: ADMIT Internal Medicine; ATTEND Internal Medicine
DX: J18.9 Pneumonia, unspecified organism (principal); J96.21 Acute and chronic respiratory failure with hypoxia; J44.1 Chronic obstructive pulmonary disease with (acute) exacerbation; J44.0 Chronic obstructive pulmonary disease with (acute) lower respiratory infection; K21.9 Gastro-esophageal reflux disease without esophagitis; F17.210 Nicotine dependence, cigarettes, uncomplicated; E66.9 Obesity, unspecified
CPT/HCPCS: 36415; 36600; 71046; 80048; 80053; 81001; 82550; 82553; 82803; 83880; 84484; 85025; 85379; 87040; 94640; 94667; 94668; 94799; 96365; 96366; 96375; 99285; J0456; J0696; J1644; J2930; J3475; J3490; J7060; J7620